=== PATIENT | female | born 1980 | race Caucasian/White ===

== ENCOUNTER 2017-11-29 20:35 | Emergency (ER) | payer SELFPAY ==
[~2017-11-29] VITALS: Ht 165.1 cm; Wt 63.3 kg
[~2017-11-29 20:35] MED LIST: VITA1000 PO; ZOLO50TA PO
[2017-11-29 20:44] VITALS: BP 173/78; PULSE 96; RESP 16; TEMP 98.3; O2SAT 100
[2017-11-29 21:12] VITALS: BP 132/80; PULSE 86; RESP 16; O2SAT 100
--- NOTE | 2017-11-29 21:23 | PD ---
HPI Chief Complaint: GI Complaint Time Seen by Provider: 21:17 Travel History International Travel<30 days: No Contact w/Intl Traveler<30days: No Traveled to known affect area: No History of Present Illness HPI 37-year-old female presents to the emergency department by private transportation in the care of her spouse for evaluation of not feeling well since yesterday. Patient has had nausea vomiting diarrhea sore throat headache myalgias arthralgias. Patient has had poor oral intake but has attempted to be hydrated drinking some Gatorade today. Patient states she vomited solids. Patient had trace diarrhea. No other family members with similar symptoms. Patient did have fever yesterday but not today. Patient has been using over-the -counter Mucinex cold preparation. Patient denies taking any ibuprofen or acetaminophen as the medication is an [id number] combination cough/cold medication. Patient is presently menstruating and denies . Headaches 6/10 in intensity and not as severe as her previous migraines. PFSH Past Medical History Narrative Medical C-sections, migraine; no tobacco use; nursing notes reviewed Migraines: Yes (History) ?: Not LMP: CURRENTLY Past Surgical History Section: Yes Social History Alcohol Use: Yes (SOCIAL) Tobacco Use: No Substance Use: No Allergies-Medications (Allergen,Severity, Reaction): Coded Allergies: No Known Allergies (Verified Adverse Reaction, Unknown, 11/29/17) Reported Meds & Prescriptions Reported Meds & Active Scripts Active Review of Systems Except as stated in HPI: all other systems reviewed are Neg Physical Exam Narrative GENERAL: Well-developed well nourished female no acute distress or respiratory distress no stridor no hoarseness ENT: Mucous membranes moist airway is patent posterior pharyngeal SKIN: Warm and dry. HEAD: Normocephalic. EYES: No scleral icterus. No injection or drainage. ENT: Mucous membranes moist airway is patent posterior pharyngeal structures no tonsillar edema exudative change or erythema tympanic membranes no redness noted no dullness no perforation NECK: Supple, trachea midline. No JVD or lymphadenopathy. No meningismus no nuchal rigidity. CARDIOVASCULAR: Regular rate and rhythm without murmurs, gallops, or rubs. RESPIRATORY: Breath sounds equal bilaterally. No accessory muscle use. GASTROINTESTINAL: Abdomen soft, non-tender, nondistended. MUSCULOSKELETAL: No cyanosis, or edema. BACK: Nontender without obvious deformity. No CVA tenderness. Data Data Last Documented VS Vital Signs Date Time Temp Pulse Resp B/P (MAP) Pulse Ox O2 Delivery O2 Flow Rate FiO2 11/29/17 21:12 86 16 132/80 (97) 100 Room Air 11/29/17 20:44 98.3 Orders Orders ^ Saline Lock (11/29/17 21:17) Sodium Chlor 0.9% 1000 Ml Inj (Ns 1000 M (11/29/17 21:30) Ondansetron Inj (Zofran Inj) (11/29/17 21:30) Complete Blood Count With Diff (11/29/17 21:17) Ed Urine Pregnancytest Poc (11/29/17 21:17) Basic Metabolic Panel (Bmp) (11/29/17 21:17) Urinalysis - C+S If Indicated (11/29/17 21:17) Influenzae A/B Antigen (11/29/17 21:17) Ketorolac Inj (Toradol Inj) (11/29/17 21:30) Urine Culture (11/29/17 21:20) Ceftriaxone Inj (Rocephin Inj) (11/29/17 22:30) Potassium Chloride (Kcl) (11/29/17 22:30) Sodium Chlor 0.9% 1000 Ml Inj (Ns 1000 M (11/29/17 22:45) Labs Laboratory Tests Test 11/29/17 21:20 White Blood Count 5.4 TH/MM3 Red Blood Count 4.71 MIL/MM3 Hemoglobin 13.1 GM/DL Hematocrit 39.1 % Mean Corpuscular Volume 82.9 FL Mean Corpuscular Hemoglobin 27.8 PG Mean Corpuscular Hemoglobin Concent 33.5 % Red Cell Distribution Width 12.6 % Platelet Count 195 TH/MM3 Mean Platelet Volume 9.4 FL Neutrophils (%) (Auto) 55.9 % Lymphocytes (%) (Auto) 33.3 % Monocytes (%) (Auto) 6.9 % Eosinophils (%) (Auto) 2.2 % Basophils (%) (Auto) 1.7 % Neutrophils # (Auto) 3.0 TH/MM3 Lymphocytes # (Auto) 1.8 TH/MM3 Monocytes # (Auto) 0.4 TH/MM3 Eosinophils # (Auto) 0.1 TH/MM3 Basophils # (Auto) 0.1 TH/MM3 CBC Comment DIFF FINAL Differential Comment Urine Color YELLOW Urine Turbidity MOD Urine pH 6.0 Urine Specific [place] 1.017 Urine Protein NEG mg/dL Urine Glucose (UA) NEG mg/dL Urine Ketones NEG mg/dL Urine Occult Blood TRACE Urine Nitrite POS Urine Bilirubin NEG Urine Leukocyte Esterase MOD Urine RBC 4-9 /hpf Urine WBC 50-99 /hpf Urine Squamous Epithelial Cells 0-5 /hpf Urine Bacteria MANY /hpf Microscopic Urinalysis Comment CULTURE INDICATED Blood Urea Nitrogen 11 MG/DL Creatinine 0.82 MG/DL Random Glucose 89 MG/DL Calcium Level 8.6 MG/DL Sodium Level 138 MEQ/L Potassium Level 3.2 MEQ/L Chloride Level 103 MEQ/L Carbon Dioxide Level 29.2 MEQ/L Anion Gap 6 MEQ/L Estimat Glomerular Filtration Rate 79 ML/MIN MDM Medical Decision Making Medical Screen Exam Complete: Yes Emergency Medical Condition: Yes Medical Record Reviewed: Yes Interpretation(s) CBC & BMP Diagram 11/29/17 21:20 Calcium Level 8.6 Vital Signs Date Time Temp Pulse Resp B/P (MAP) Pulse Ox O2 Delivery O2 Flow Rate FiO2 11/29/17 21:12 86 16 132/80 (97) 100 Room Air 11/29/17 21:12 16 11/29/17 20:44 98.3 96 16 173/78 (109) 100 POC hcg: negative 'UA: Positive nitrites positive white blood cells positive bacteria culture indicated Differential Diagnosis Influenza, viral syndrome, sinusitis, bronchitis, pneumonia, dehydration, gastroenteritis Narrative Course IV access obtained specimens collected and sent for resulting patient administered we will saline 1 L Toradol 30 mg IV and Zofran 4 mg IV CBC with automated differential values are normal; metabolic panel mild hypokalemia otherwise values grossly normal; urinalysis shows white blood cells many bacteria nitrates and cultures indicated; patient will be given a gram of Rocephin IV and additional liter of IVF here for UTI possible early pyelonephritis; patient has received IV fluids and Toradol. Patient's flu test is negative. Patient is stable for outpatient management and close follow-up with her primary care provider. Patient informed of lab results and stable for outpatient management. Diagnosis Primary Impression: UTI (urinary tract infection) Additional Impression: Hypokalemia Referrals: Primary Care Physician call for appointment Patient Instructions: General Instructions Departure Forms: Tests/Procedures, Work Release Special Instructions: no work x 2 days Additional Instructions: Increase fluid hydration Follow up with her primary care provider call office in a.m. Complete course of antibiotic as prescribed return to the emergency department for any concerns or change in condition Take Tylenol every 4 hours for fever 100.4F or greater Take ibuprofen every 6 hours for fever 100.4F or greater Add potassium to dietary intake Med/Other Pt SpecificInfo: Prescription(s) given Scripts Ondansetron Odt (Zofran Odt) 4 Mg Tab 4 MG SL Q6HR Y for Nausea/Vomiting, #7 TAB 0 Refills Prov: Apoorva Coleman MD 11/29/17 Sulfamethoxazole-Trimethoprim (Bactrim DS) 800-160 Mg Tab 1 TAB PO BID for Infection, #20 TAB 0 Refills Prov: Apoorva Coleman MD 11/29/17 Disposition: 01 DISCHARGE HOME Condition: Stable Apoorva Coleman MD Nov 29, 2017 21:23
[2017-11-29] MEDS ORDERED: SODIUM CHLOR 0.9% 1000 ML INJ 1,000 ML IV ONE ×2 (21:30→22:45)
[2017-11-29] MEDS ORDERED: ONDANSETRON HCL 4 MG/2 ML VIAL IV PUSH ONE (21:30)
[2017-11-29] MEDS ORDERED: KETOROLAC TROMETHAMINE 30 MG/ML (IVP) VIAL IV PUSH ONE (21:30)
[2017-11-29 21:52] LABS: BASOPHIL # 0.1 TH/MM3 (0-0.2); BASOPHIL % 1.7 % (0.0-2.0); EOSINOPHIL # 0.1 TH/MM3 (0-0.4); EOSINOPHIL % 2.2 % (0.0-4.0); HEMATOCRIT 39.1 % (35.0-46.0); HEMOGLOBIN 13.1 GM/DL (11.6-15.3); LYMPH % 33.3 % (9.0-44.0); LYMPHOCYTE # 1.8 TH/MM3 (1.0-4.8); MEAN CELL VOLUME 82.9 FL (80.0-100.0); MEAN CORPUSCULAR HEMOGLOBIN 27.8 PG (27.0-34.0); MEAN CORPUSCULAR HGB CONC 33.5 % (32.0-36.0); MEAN PLATELET VOLUME 9.4 FL (7.0-11.0); MONO % 6.9 % (0.0-8.0); MONOCYTE # 0.4 TH/MM3 (0-0.9); NEUT % 55.9 % (16.0-70.0); PLATELET COUNT 195 TH/MM3 (150-450); RED BLOOD COUNT 4.71 MIL/MM3 (4.00-5.30); RED CELL DISTRIBUTION WIDTH 12.6 % (11.6-17.2); WHITE BLOOD COUNT 5.4 TH/MM3 (4.0-11.0)
[2017-11-29 21:53] LABS: BILIRUBIN, URINE NEG (NEG); GLUCOSE,URINE NEG (NEG); KETONE, URINE NEG (NEG); NITRITE,URINE POS (NEG); URINE LEUKOCYTE ESTERASE MOD (NEG)
[2017-11-29 22:04] LABS: BLOOD, URINE TRACE (NEG); CALCIUM 8.6 MG/DL (8.5-10.1)
[2017-11-29 22:05] LABS: BICARBONATE 29.2 MEQ/L (21.0-32.0); URINE COLOR YELLOW (YELLW/STRAW)
[2017-11-29 22:06] LABS: BACTERIA, URINE MANY /hpf; SQUAMOUS EPITHELIAL CELL URINE 0-5 /hpf (0-5)
[2017-11-29 22:08] LABS: CREATININE 0.82 MG/DL (0.50-1.00)
[2017-11-29 22:12] VITALS: BP 119/79; PULSE 78; RESP 18; O2SAT 100
[2017-11-29] MEDS ORDERED: cefTRIAXone INJ 1,000 MG in SODIUM CHLORIDE 0.9% INJ 100 ML IV ONE (22:30)
[2017-11-29] MEDS ORDERED: POTASSIUM CHLORIDE 20 MEQ CONTROLLED RELEASE TAB PO ONE (22:30)
[2017-11-29] MEDS ORDERED: BACT800T5 PO (22:34)
[2017-11-29] MEDS ORDERED: ZOFR4TAB3 SL (22:34)
[2017-11-29 23:15] VITALS: BP 116/66; PULSE 73; RESP 18; O2SAT 100
[2017-11-30 00:04] VITALS: BP 116/76
== END 2017-11-30 00:07 | disposition home or self-care (01) ==
LOC: PHED 20:35
DX: N39.0 Urinary tract infection, site not specified (principal); B96.20 Unspecified Escherichia coli [E. coli] as the cause of diseases classified elsewhere; E87.6 Hypokalemia
CPT/HCPCS: 80048; 81001; 84703; 85025; 87077; 87086; 87186; 87804; 96365; 96375; 99284; J0696; J1885; J2405; J7030